=== PATIENT | female | born 1945 | race Hispanic/Latino ===

== ENCOUNTER → 2020-05-16 | Outpatient (CLI) | payer OTHER, MEDICARE ==
[~2020-05-16] MED LIST: ALEN70TA10 PO; ASPI-1443 PO; CALC-1048 PO; CHOL100040 PO; FURO40TA5 PO; LOSA25TA41 PO; METO-408 PO; PRAV20TA4 PO; REGADENOSON 0.4 MG/5 ML PF SYG IVP SCH; SPIR50TA5 PO; UMEC1DIS IH
== END | disposition home or self-care (01) ==
LOC: SHCH 07:39
PROVIDERS: ATTEND Internal Medicine Cardiovascular Disease
DX: R07.9 Chest pain, unspecified (principal)
CPT/HCPCS: 78452; 93017; 96374; A9500 ×2; J2785

== ENCOUNTER → 2022-01-29 | Outpatient (CLI) | payer OTHER, MEDICARE ==
[~2022-01-29] MED LIST changes: -ALEN70TA10 PO; +ALEN70TA80 PO; -REGADENOSON 0.4 MG/5 ML PF SYG IVP SCH
[2022-01-29 12:43] LABS: CREATININE 1.4 mg/dL (0.5-1.5)
== END | disposition home or self-care (01) ==
LOC: LAB 09:05
PROVIDERS: ATTEND Internal Medicine Cardiovascular Disease
DX: I50.22 Chronic systolic (congestive) heart failure (principal)
CPT/HCPCS: 36415; 80048; 83880

== ENCOUNTER → 2022-04-30 | Outpatient (CLI) | payer OTHER, MEDICARE ==
[2022-04-30 13:04] LABS: CREATININE 1.4 mg/dL (0.5-1.5); POTASSIUM 4.7 mmol/L (3.5-5.1)
== END | disposition home or self-care (01) ==
LOC: LAB 09:51
PROVIDERS: ATTEND Internal Medicine Cardiovascular Disease
DX: I50.22 Chronic systolic (congestive) heart failure (principal)
CPT/HCPCS: 36415; 80048; 83880

== ENCOUNTER → 2022-09-03 | Outpatient (CLI) | payer OTHER, MEDICARE ==
[2022-09-03 13:12] LABS: CREATININE 1.3 mg/dL (0.5-1.5); POTASSIUM 4.8 mmol/L (3.5-5.1)
== END | disposition home or self-care (01) ==
LOC: LAB 09:50
PROVIDERS: ATTEND Internal Medicine Cardiovascular Disease
DX: I50.22 Chronic systolic (congestive) heart failure (principal)
CPT/HCPCS: 36415; 80048; 83880

== ENCOUNTER → 2023-03-25 | Outpatient (CLI) | payer OTHER, MEDICARE ==
[2023-03-25 13:29] LABS: CREATININE 1.3 mg/dL (0.5-1.5); POTASSIUM 3.7 mmol/L (3.5-5.1)
== END | disposition home or self-care (01) ==
LOC: LAB 08:05
PROVIDERS: ATTEND Internal Medicine Cardiovascular Disease
DX: I50.22 Chronic systolic (congestive) heart failure (principal)
CPT/HCPCS: 36415; 80048; 83880

== ENCOUNTER → 2023-08-27 | Outpatient (CLI) | payer OTHER, MEDICARE ==
[2023-08-27 12:12] LABS: CREATININE 1.2 mg/dL (0.5-1.5); POTASSIUM 4.7 mmol/L (3.5-5.1)
== END | disposition home or self-care (01) ==
LOC: LAB 09:40
PROVIDERS: ATTEND Internal Medicine Cardiovascular Disease
DX: I50.22 Chronic systolic (congestive) heart failure (principal)
CPT/HCPCS: 36415; 80048

== ENCOUNTER → 2023-11-05 | Outpatient (CLI) | payer OTHER, MEDICARE | END | disposition home or self-care (01) | LOC: SHCH 08:14 | PROVIDERS: ATTEND Internal Medicine Cardiovascular Disease | DX: I08.8 Other rheumatic multiple valve diseases (principal); Z95.2 Presence of prosthetic heart valve | CPT/HCPCS: 93306 ==

== ENCOUNTER → 2024-01-27 | Outpatient (CLI) | payer OTHER, MEDICARE ==
[2024-01-27 17:09] LABS: CREATININE 1.5 mg/dL (0.5-1.0); POTASSIUM 4.5 mmol/L (3.5-5.1)
== END | disposition home or self-care (01) ==
LOC: LAB 13:27
PROVIDERS: ATTEND Internal Medicine Cardiovascular Disease
DX: I50.22 Chronic systolic (congestive) heart failure (principal)
CPT/HCPCS: 36415; 80048; 83880